=== PATIENT | female | born 1960 | race Caucasian/White ===

== ENCOUNTER → 2020-08-21 | Outpatient (CLI) | payer BC ==
--- NOTE | 2020-08-21 14:42 | RAD ---
EXAM: Shoulder,Left 2 or More Views INDICATION: 59 years Female, SHOULDER PAIN LEFT COMPARISON: None available FINDINGS: 4 views of the left shoulder were performed. No fracture or dislocation. No destructive osseous lesion. Mild degenerative change in the shoulder. The acromioclavicular joint appears intact. No gross soft tissue abnormality. IMPRESSION: Mild degenerative change in the left shoulder without fracture or dislocation. Electronically signed by: Vaishali Cramer MD 08/21/2020 2:41 PM [facility]
== END ==
LOC: RAD 09:38
PROVIDERS: ATTEND Orthopaedic Surgery
DX: M19.012 Primary osteoarthritis, left shoulder (principal)